=== PATIENT | male | born 1975 | race Caucasian/White ===

== ENCOUNTER 2017-04-24 10:29 | Emergency (ER) | payer BC, OTHER ==
[~2017-04-24] VITALS: Ht 175.3 cm; Wt 90.6 kg
[~2017-04-24 10:29] MED LIST: LEVO50TA PO
[2017-04-24 10:33] VITALS: TEMP 36.8; Ht 175.3 cm; Wt 90.6 kg
[2017-04-24] MEDS ORDERED: ASPIRIN 81 MG CHEW PO STA (11:04)
[2017-04-24] MEDS ORDERED: SODIUM CHLORIDE 0.9% 1000ML 1,000 ML IV STA (11:04)
--- NOTE | 2017-04-24 11:15 | EMERGENCY ROOM VISIT NOTE ---
History Report prepared by Jada: Josias Chauhan Under the Supervision of: Dr. Christian Hopkins M.D. First contact with patient: 11:02 Chief Complaint: CHEST PAIN Stated Complaint: CHEST PAIN Nursing Triage Summary: Pt presents with c/o left sided cp into left bicep since 0900. States he was running errands when the pain started. SOB, lightheaded. Denies previous episodes of cp. Denies nausea or pain in legs. History of Present Illness The patient is a 41 year old male who presents to the Emergency Room with complaints of intermittent chest pain starting 0900 this morning. The patient currently rates his discomfort as a 5-6/10 in severity. The patient additionally notes that the pain is going down his left arm, and he was feeling short of breath. He additionally notes that he was feeling light headed, and he felt like he was going to pass out, though he never lost consciousness. He also notes that he feels thirsty. The patient states that he has had some recent long car rides that were 6-7 hours. He denies any cough, hemoptysis, fever, hormone use, bloody stools, hematuria, and any black stools. The patient has hypothyroidism, and he is not on any medications. Source of History: patient Onset: 0900 Position: chest Symptom Intensity: 5-6/10 Timing: intermittent Associated Symptoms: + SOB, No LOC, No fevers, No cough Note: Associated symptoms: Light headedness Review of Systems See HPI for pertinent positives and negatives. A total of ten systems were reviewed and were otherwise negative. Past Medical & Surgical Medical Problems: (1) Hypothyroid Family History FHx: heart disease Hypertension Social History Smoking Status: Former Smoker Marital Status: Housing Status: lives with family Occupation Status: employed Current/Historical Medications No Active Prescriptions or Reported Meds Allergies Coded Allergies: Sulfa Drugs (Verified Allergy, Intermediate, HIVES, 02/20/10) Physical Exam Vital Signs Date Time Temp Pulse Resp B/P (MAP) Pulse Ox O2 Delivery O2 Flow Rate FiO2 04/24/17 15:04 77 18 151/94 98 Room Air 04/24/17 12:54 83 20 144/102 99 Room Air 04/24/17 12:40 85 20 150/111 99 Room Air 04/24/17 11:41 75 20 125/80 99 Room Air 04/24/17 11:39 99 Room Air 04/24/17 11:39 99 Room Air 04/24/17 10:47 93 04/24/17 10:45 99 Room Air 04/24/17 10:33 36.8 91 18 162/101 100 Room Air Physical Exam Physical Exam GENERAL: He is oriented to person, place, and time. He appears well-developed and well-nourished. He does not appear distressed. ____ HENT: Exam performed. Head: Normocephalic and atraumatic. Right Ear: External ear normal. No mastoid tenderness. Left Ear: External ear normal. No mastoid tenderness. Mouth/Throat: The oropharynx is clear and moist. No trismus in the jaw. No dental abscesses or uvula swelling. No oropharyngeal exudate or tonsillar abscesses. ____ EYES: Conjunctivae and EOM are normal. Pupils are equal, round, and reactive to light. Right eye exhibits no discharge. Left eye exhibits no discharge. No scleral icterus. ____ NECK: Normal range of motion. Neck supple. No JVD present. No spinous process tenderness present. No carotid bruit present. No rigidity. No tracheal deviation and normal range of motion present. No Brudzinski's sign and no Kernig 's sign noted. ____ CV: Normal rate, regular rhythm, normal heart sounds and intact distal pulses. There is no peripheral edema. Palpable radial pulses bue. ____ PULM/CHEST: Effort normal and breath sounds normal. No respiratory distress. No stridor. He has no wheezes. He has no rales. Chest Wall: He exhibits no tenderness. ____ ABD: The abdomen is soft. Bowel sounds are normal. He has no distension. No mass is present. There is no tenderness. There is no rebound, no guarding, no Fournier's sign and no tenderness at McBurney's point. Rovsig negative MUSC/SKEL: Normal range of motion. There is no peripheral edema, tenderness or deformity. LYMPH: No cervical adenopathy. ____ NEURO: He is alert and oriented to person, place, and time. He has normal strength. No cranial nerve deficit or sensory deficit. Coordination and gait normal. GCS eye subscore is 4. GCS verbal subscore is 5. GCS motor subscore is 6. Cerebellar tests wnl. ____ SKIN: Skin is warm and dry. He is not diaphoretic. ____ PSYCH: He has a normal mood and affect. His behavior is normal. Judgment and thought content normal. ____ Medical Decision & Procedures ER Provider Diagnostic Interpretation: Radiology results as stated below per my review and radiologist interpretation: CHEST 2 VIEWS ROUTINE CLINICAL HISTORY: cp sob dyspnea COMPARISON STUDY: No previous studies for comparison. FINDINGS: The bones soft tissues and hemidiaphragms are normal. The cardiomediastinal silhouette is normal. The lungs are clear. The pulmonary vasculature is normal. IMPRESSION: Negative chest. The above report was generated using voice recognition software. It may contain grammatical, syntax or spelling errors. Electronically signed by: Jair Ribera M.D. 04/24/2017 12:25 PM Dictated Date/Time: 04/24/2017 12:24 PM Laboratory Results 04/24/17 10:45 Red Blood Count 4.97, Mean Corpuscular Volume 88.7, Mean Corpuscular Hemoglobin 33.4, Mean Corpuscular Hemoglobin Concent 37.6, Mean Platelet Volume 10.3, Neutrophils (%) (Auto) 42.1, Lymphocytes (%) (Auto) 43.3, Monocytes (%) (Auto) 9.2, Eosinophils (%) (Auto) 4.5, Basophils (%) (Auto) 0.7, Neutrophils # (Auto) 1.88, Lymphocytes # (Auto) 1.93, Monocytes # (Auto) 0.41, Eosinophils # (Auto) 0.20, Basophils # (Auto) 0.03 04/24/17 10:45 Test 04/24/17 10:45 04/24/17 13:45 White Blood Count 4.46 K/uL (4.8-10.8) Red Blood Count 4.97 M/uL (4.7-6.1) Hemoglobin 16.6 g/dL (14.0-18.0) Hematocrit 44.1 % (42-52) Mean Corpuscular Volume 88.7 fL (80-100) Mean Corpuscular Hemoglobin 33.4 pg (25-34) Mean Corpuscular Hemoglobin Concent 37.6 g/dl (32-36) Platelet Count 208 K/uL (130-400) Mean Platelet Volume 10.3 fL (7.4-10.4) Neutrophils (%) (Auto) 42.1 % Lymphocytes (%) (Auto) 43.3 % Monocytes (%) (Auto) 9.2 % Eosinophils (%) (Auto) 4.5 % Basophils (%) (Auto) 0.7 % Neutrophils # (Auto) 1.88 K/uL (1.4-6.5) Lymphocytes # (Auto) 1.93 K/uL (1.2-3.4) Monocytes # (Auto) 0.41 K/uL (0.11-0.59) Eosinophils # (Auto) 0.20 K/uL (0-0.5) Basophils # (Auto) 0.03 K/uL (0-0.2) RDW Standard Deviation 39.4 fL (36.4-46.3) RDW Coefficient of Variation 12.3 % (11.5-14.5) Immature Granulocyte % (Auto) 0.2 % Immature Granulocyte # (Auto) 0.01 K/uL (0.00-0.02) Prothrombin Time 10.6 SECONDS (9.0-12.0) Prothromb Time International Ratio 1.0 (0.9-1.1) Activated Partial Thromboplast Time 26.3 SECONDS (21.0-31.0) Partial Thromboplastin Ratio 1.0 D-Dimer < 190 ug/L FEU (0-500) Anion Gap 7.0 mmol/L (3-11) Est Creatinine Clear Calc Drug Dose 96.4 ml/min Estimated GFR () 94.8 Estimated GFR (Non- 81.8 BUN/Creatinine Ratio 8.1 (10-20) Calcium Level 8.9 mg/dl (8.5-10.1) Troponin I < 0.015 ng/ml (0-0.045) Laboratory results reviewed by me Medications Administered Medications (Trade) Dose Ordered Sig/Carol Route Start Time Stop Time Status Last Admin Dose Admin Sodium Chloride 1,000 ml @ 999 mls/hr Q1H1M STAT IV 04/24/17 11:04 04/24/17 12:04 DC 04/24/17 11:37 999 MLS/HR Aspirin (Aspirin Chew) 324 mg NOW STAT PO 04/24/17 11:04 04/24/17 11:08 DC 04/24/17 11:37 324 MG Ketorolac Tromethamine (Toradol Inj) 30 mg STK-MED ONCE .ROUTE 04/24/17 12:57 04/24/17 12:58 DC 04/24/17 13:00 30 MG ECG Per My Interpretation Indication: chest pain Rate (beats per minute): 98 Rhythm: sinus rhythm Findings: T-wave inversion (in lead 3), other (DE, QRS, and QTC are within normal limits. No ST elevation or ST depression. Baseline wander and artifact.) Change: Repeat EKG: Sinus at 81 bpm. DE, QRS, and QTc are within normal limits. No ST elevation or ST depression. ED Course 1102: The patient was evaluated in room A9. A complete history and physical exam was performed. 1104: Aspirin 324mg PO, Sodium Chloride 1000 ml @ 999 mls/hr IV 1257: Toradol 30mg IV 1348: EKG, chest x-ray, and labs are within normal limits. I offered hospitalization, and the patient prefers to have a stress test if the second troponin is negative. She is reporting a mild headache, and he wants to drink water. He is getting PO water and Toradol. 1520: Vital signs stable. The patient states that he feels much better. Repeat troponin within normal limits. He states that he is no longer having any chest pain or shortness of breath. He will be discharged with follow up. assistant office manager is trying to arrange a PCP referral for outpatient stress tests. DISCHARGE - Plan of care discussed with patient and questions answered. The patient was given both verbal and printed discharge instructions. The patient verbalized understanding and ability to comply. The patient is to seek outpatient follow up as noted in the discharge instructions. The patient verbalized understanding and ability to comply. The patient is discharged in stable condition. The patient was instructed to return for worsening symptoms. Medical Decision 1348: EKG, chest x-ray, and labs are within normal limits. I offered hospitalization, and the patient prefers to have a stress test if the second troponin is negative. She is reporting a mild headache, and he wants to drink water. He is getting PO water and Toradol. 1520: Vital signs stable. The patient states that he feels much better. Repeat troponin within normal limits. He states that he is no longer having any chest pain or shortness of breath. He will be discharged with follow up. assistant office manager is trying to arrange a PCP referral for outpatient stress tests. DISCHARGE - Plan of care discussed with patient and questions answered. The patient was given both verbal and printed discharge instructions. The patient verbalized understanding and ability to comply. The patient is to seek outpatient follow up as noted in the discharge instructions. The patient verbalized understanding and ability to comply. The patient is discharged in stable condition. The patient was instructed to return for worsening symptoms. Medication Reconcilliation Current Medication List: was personally reviewed by me Blood Pressure Screening Patient's blood pressure: Elevated blood pressure Blood pressure disposition: Referred to PCP Impression Primary Impression: Chest pain, unspecified Scribe Attestation The scribe's documentation has been prepared under my direction and personally reviewed by me in its entirety. I confirm that the note above accurately reflects all work, treatment, procedures, and medical decision making performed by me. The chart was completed utilizing [employer] Speech voice recognition software. Grammatical errors, random word insertions, pronoun errors, and incomplete sentences are an occasional consequence of this system due to software limitations, ambient noise, and hardware issues. Any formal questions or concerns about the content, text, or information contained within the body of this dictation should be directly addressed to the physician for clarification. Departure Information Dispostion Home / Self-Care Prescriptions No Active Prescriptions or Reported Meds Referrals Barry Luciano M.D. (PCP) Forms Call Back Authorization, HOME CARE DOCUMENTATION FORM, IMPORTANT VISIT INFORMATION Patient Instructions Chest Pain - [facility], My [facility]
[2017-04-24 11:21] LABS: BASO % 0.7 %; BASO ABS # 0.03 K/uL (0-0.2); EOS % 4.5 %; HEMATOCRIT 44.1 % (42-52); HEMOGLOBIN 16.6 g/dL (14.0-18.0); IG# 0.01 K/uL (0.00-0.02); LYMPH % 43.3 %; LYMPH ABS # 1.93 K/uL (1.2-3.4); MEAN CELL VOLUME 88.7 fL (80-100); MEAN CORPUSCULAR HEMOGLOBIN 33.4 pg (25-34); MEAN CORPUSCULAR HGB CONC 37.6 g/dl (32-36); MEAN PLATELET VOLUME 10.3 fL (7.4-10.4); MONO % 9.2 %; MONO ABS # 0.41 K/uL (0.11-0.59); NEUT % 42.1 %; NEUT ABS # 1.88 K/uL (1.4-6.5); PLATELET COUNT 208 K/uL (130-400); RED CELL DISTRIBUTION WIDTH CV 12.3 % (11.5-14.5); RED CELL DISTRIBUTION WIDTH SD 39.4 fL (36.4-46.3); WHITE BLOOD COUNT 4.46 K/uL (4.8-10.8)
[2017-04-24 11:29] LABS: BLOOD UREA NITROGEN 9 mg/dl (7-18); CALCIUM 8.9 mg/dl (8.5-10.1); CARBON DIOXIDE 25 mmol/L (21-32); GLUCOSE 114 mg/dl (70-99); POTASSIUM 3.7 mmol/L (3.5-5.1); SODIUM 134 mmol/L (136-145)
[2017-04-24 11:34] LABS: PTT PATIENT 26.3 SECONDS (21.0-31.0)
[2017-04-24 11:39] VITALS: O2SAT 99
--- NOTE | 2017-04-24 12:26 | DIAGNOSTIC IMAGING REPORT ---
CHEST 2 VIEWS ROUTINE CLINICAL HISTORY: cp sob dyspnea COMPARISON STUDY: No previous studies for comparison. FINDINGS: The bones soft tissues and hemidiaphragms are normal. The cardiomediastinal silhouette is normal. The lungs are clear. The pulmonary vasculature is normal. IMPRESSION: Negative chest. The above report was generated using voice recognition software. It may contain grammatical, syntax or spelling errors. Electronically signed by: Jair Ribera M.D. 04/24/2017 12:25 PM Dictated Date/Time: 04/24/2017 12:24 PM
[2017-04-24] MEDS ORDERED: KETOROLAC TROMETHAMINE 15 MG/ML VIAL IV STA (12:46)
[2017-04-24] MEDS ORDERED: KETOROLAC TROMETHAMINE 30 MG/ML VIAL ONE (12:57)
[2017-04-24 15:04] VITALS: BP 151/94; PULSE 77; O2SAT 98
== END 2017-04-24 15:40 | disposition home or self-care (01) ==
LOC: C.EDB 10:31 → C.EDA 15:40
DX: R07.9 Chest pain, unspecified (principal); E03.9 Hypothyroidism, unspecified; Z82.49 Family history of ischemic heart disease and other diseases of the circulatory system; Z87.891 Personal history of nicotine dependence; Z88.2 Allergy status to sulfonamides

== ENCOUNTER → 2017-05-02 | Outpatient (CLI) | payer BC ==
[2017-05-02 11:27] LABS: ALBUMIN 3.9 gm/dl (3.4-5.0); ALT/SGPT 36 U/L (12-78); AST/SGOT 17 U/L (15-37); BLOOD UREA NITROGEN 11 mg/dl (7-18); CALCIUM 8.8 mg/dl (8.5-10.1); CARBON DIOXIDE 28 mmol/L (21-32); CHOLESTEROL 215 mg/dl (0-200); CREATININE 1.13 mg/dl (0.60-1.40); GLUCOSE 94 mg/dl (70-99); POTASSIUM 4.1 mmol/L (3.5-5.1); SODIUM 135 mmol/L (136-145)
[2017-05-02 11:36] LABS: ALKALINE PHOSPHATASE 64 U/L (45-117); LDL CHOLESTEROL CALCULATED 137 mg/dl; TOTAL PROTEIN 7.4 gm/dl (6.4-8.2)
[2017-05-02 11:42] LABS: HEMOGLOBIN A1C 5.3 % (4.5-5.6)
== END | disposition home or self-care (01) ==
LOC: C.LABBC 08:41
PROVIDERS: ATTEND Internal Medicine
DX: E78.5 Hyperlipidemia, unspecified (principal); E03.9 Hypothyroidism, unspecified; R07.9 Chest pain, unspecified; R73.9 Hyperglycemia, unspecified; R51 Headache